=== PATIENT | female | born 1975 | race Caucasian/White ===

== ENCOUNTER 2019-01-21 09:42 | Emergency (ER) | payer MEDICAID ==
[~2019-01-21] VITALS: Ht 167.6 cm; Wt 73.7 kg
[2019-01-21 09:46] VITALS: Ht 167.6 cm; Wt 73.7 kg
[2019-01-21] MEDS ORDERED: SOD CHLORIDE 0.9% 1,000 ML IV STA (10:19)
[2019-01-21] MEDS ORDERED: KETOROLAC 30 MG INJ IV STA (10:19)
[2019-01-21] MEDS ORDERED: morphine 4 MG/ML VIAL IV STA (10:19)
[2019-01-21] MEDS ORDERED: ONDA4TAB14 PO (12:29)
[2019-01-21] MEDS ORDERED: IBUP-1542 PO (12:29)
--- NOTE | 2019-01-21 12:32 | ERD ---
ER Documentation Chief Complaint Chief Complaint Complains of abdominal pain x 3 days HPI Patient is a 43-year-old female with no medical problems who presents with nausea and vomiting. She has felt shaky for the past 2 weeks. She said her stomach was upset. She had a lump in her rectal area which the said was "black". The patient denies any blood in the stool. There is no fevers. She has had no treatment as of yet. Upon review of old medical records this is the patient's first visit to the emergency department. She goes to a local clinic for her care. ROS All systems reviewed and are negative except as per history of present illness. Medications Home Meds Active Scripts Ondansetron (Ondansetron Odt) 4 Mg Tab.rapdis, 4 MG PO Q6H PRN for NAUSEA AND/OR VOMITING, #10 TAB Prov:SHAVON BALES MD 01/21/19 Ibuprofen* (Motrin*) 600 Mg Tab, 600 MG PO Q6H PRN for PAIN AND OR ELEVATED TEMP, #30 TAB Prov:SHAVON BALES MD 01/21/19 Allergies Allergies: Coded Allergies: No Known Allergy (Unverified , 01/21/19) PMhx/Soc History of Surgery: Yes (, left hip replacement ) Hx Miscellaneous Medical Probl: No Hx Alcohol Use: No Hx Substance Use: No Hx Tobacco Use: No Smoking Status: Never smoker FmHx Family History: diabetes Physical Exam Vitals Vital Signs Date Temp Pulse Resp B/P (MAP) Pulse Ox O2 O2 Flow FiO2 Time Delivery Rate 01/21/19 65 17 130/64 100 Room Air 10:43 (86) 01/21/19 97.9 73 20 151/72 98 09:46 (98) Physical Exam Const: No acute distress Head: Atraumatic Eyes: Normal Conjunctiva ENT: Normal External Ears, Nose and Mouth. Neck: Full range of motion. No meningismus. Resp: Clear to auscultation bilaterally Cardio: Regular rate and rhythm, no murmurs Abd: Soft, non tender, non distended. Normal bowel sounds Skin: No petechiae or rashes Back: No midline or flank tenderness Ext: No cyanosis, or edema Neur: Awake and alert Rectal: No sign of hemorrhoids or black lump or other abnormality Result Diagram: 01/21/19 1042 01/21/19 1042 Results 24 hrs Laboratory Tests Test 01/21/19 10:40 01/21/19 10:42 01/21/19 10:45 POC Beta HCG, Qualitative NEGATIVE White Blood Count 7.0 10^3/ul Red Blood Count 4.62 10^6/ul Hemoglobin 9.8 g/dl Hematocrit 32.7 % Mean Corpuscular Volume 70.8 fl Mean Corpuscular Hemoglobin 21.2 pg Mean Corpuscular 30.0 g/dl Hemoglobin Concent Red Cell Distribution Width 18.6 % Platelet Count 322 10^3/UL Mean Platelet Volume 10.7 fl Immature Granulocytes % 0.400 % Neutrophils % 67.1 % Lymphocytes % 20.9 % Monocytes % 8.9 % Eosinophils % 2.3 % Basophils % 0.4 % Nucleated Red Blood Cells % 0.0 /100WBC Immature Granulocytes # 0.030 10^3/ul Neutrophils # 4.7 10^3/ul Lymphocytes # 1.5 10^3/ul Monocytes # 0.6 10^3/ul Eosinophils # 0.2 10^3/ul Basophils # 0.0 10^3/ul Nucleated Red Blood Cells # 0.0 10^3/ul Sodium Level 141 mmol/L Potassium Level 3.7 mmol/L Chloride Level 109 mmol/L Carbon Dioxide Level 24 mmol/L Anion Gap 8 Blood Urea Nitrogen 15 mg/dl Creatinine 0.46 mg/dl Est Glomerular Filtrat > 60 mL/min Rate mL/min Glucose Level 102 mg/dl Calcium Level 9.0 mg/dl Total Bilirubin 0.0 mg/dl Direct Bilirubin 0.00 mg/dl Indirect Bilirubin 0.0 mg/dl Aspartate Amino 21 IU/L Transf (AST/SGOT) Alanine 20 IU/L Aminotransferase (ALT/SGPT) Alkaline Phosphatase 84 IU/L Troponin I < 0.012 ng/ml Total Protein 7.5 g/dl Albumin 4.1 g/dl Globulin 3.40 g/dl Albumin/Globulin Ratio 1.20 Lipase 129 U/L Urine Color YELLOW Urine Clarity SLIGHTLY CLOUDY Urine pH 5.0 Urine Specific [place] 1.023 Urine Ketones NEGATIVE mg/dL Urine Nitrite NEGATIVE mg/dL Urine Bilirubin NEGATIVE mg/dL Urine Urobilinogen NEGATIVE mg/dL Urine Leukocyte Esterase NEGATIVE Yamini/ul Urine Microscopic RBC 2 /HPF Urine Microscopic WBC 1 /HPF Urine Squamous Epithelial Cells FEW /HPF Urine Mucus FEW /HPF Urine Hemoglobin 1+ mg/dL Urine Glucose NEGATIVE mg/dL Urine Total Protein NEGATIVE mg/dl Current Medications Medications Dose Sig/Taj Start Time Status Last (Trade) Ordered Route PRN Stop Time Admin Dose Reason Admin Sodium 1,000 ml @ Q1H STAT 01/21/19 DC 01/21/19 Chloride 1,000 mls/hr IV 10: 10:44 01/21/19 11:18 Morphine 4 mg ONCE STAT 01/21/19 DC 01/21/19 Sulfate IV 10: 10:45 (morphine) 01/21/19 10:20 Ketorolac 30 mg ONCE STAT 01/21/19 DC 01/21/19 Tromethamine IV 10: 10:45 (Toradol) 01/21/19 10:20 Procedures/MDM EKG read by me: Rate/Rhythm: Regular rate and rhythm at a rate of 65 Intervals: Normal Impression: No evidence of ischemia or arrhythmia Patient is a 43-year-old female presents with nausea and vomiting and crampy abdominal pain. Laboratory studies were normal other than a mild anemia. I do not believe the patient requires further workup or admission to the hospital at this time. I doubt appendicitis, cholecystitis, pancreatitis, or bowel obstruction. I believe the risk of doing a CT scan of the abdomen and pelvis outweigh the benefits given the risk of radiation. The patient will need close follow-up with the primary doctor within 24 hours for reevaluation. EKG was negative and I doubt acute coronary syndrome. Departure Diagnosis: Primary Impression: Abdominal pain Abdominal location: generalized Qualified Codes: R10.84 - Generalized abdominal pain Condition: Fair Patient Instructions: Abdominal Pain Referrals: Your doctor Additional Instructions: Llame al doctor MAANA y bernice kendrick JENNY PARA DENTRO DE 1-2 GUTIERREZ.Dgale a la secretaria que nosotros le instruimos hacer esta jenny.Avise o llame si adams condicin se empeora antes de la jenny. Regresa aqui si peor o no mejor. SHAVON BALES MD Jan 21, 2019 12:32
[2019-01-21 13:22] VITALS: BP 123/72; PULSE 61; RESP 17
== END 2019-01-21 13:22 | disposition home or self-care (01) ==
LOC: E/R 09:42
DX: R10.84 Generalized abdominal pain (principal); R11.2 Nausea with vomiting, unspecified; Z96.642 Presence of left artificial hip joint
CPT/HCPCS: 36415; 80053; 81001; 81025; 83690; 84484; 85025; 93005; 96361; 96374; 96375; J1885; J2270; J7030; Z7502